=== PATIENT | female | born 1975 | race Caucasian/White ===

== ENCOUNTER 2021-05-03 10:40 | Outpatient (CLI) | payer BC, SELFPAY ==
--- NOTE | 2021-05-03 12:49 | PFTCOMP_ITS ---
COMPLETE PULMONARY FUNCTION TEST INTERPRETATION Brief HPI: Patient is a 45 year old female, currently under the care of myself, who presents to [facility] for complete pulmonary function tests secondary to diagnosis of myositis. Respiratory therapist reports good effort and reproducible results. Interpretation: Forced expiration spirometry shows no large airways obstructive ventilatory defect with an FEV1 of 95% predicted. There is no significant bronchodilator response by strict ATS criteria. Spirograms are of good quality and plateau normally. The respiratory flow volume loop shows a normal pattern. Lung volumes by body plethysmography show a normal total lung capacity at 4.48 L, 90% predicted. All other lung volumes are within normal limits. Diffusion capacity by carbon monoxide is normal at 112% predicted. The airway resistance is slightly elevated. No previous pulmonary function tests were available for review. Impression: These pulmonary function tests are grossly within normal limits.
== END 2021-05-03 23:59 | disposition home or self-care (01) ==
LOC: PSN 10:42
PROVIDERS: Referring Provider Internal Medicine Critical Care Medicine; Visit Provider Internal Medicine Critical Care Medicine
DX: M60.9 Myositis, unspecified (principal)
CPT/HCPCS: 94060; 94726; 94729

== ENCOUNTER 2021-05-05 07:38 | Outpatient (CLI) | payer BC, SELFPAY ==
--- NOTE | 2021-05-05 07:41 | ECHOD_ITS ---
Reason For Study: PHTN Procedure This was a 2D Doppler, Color Flow transthoracic echocardiogram. Exam performed in department. Left Ventricle Normal LV size. The estimated ejection fraction is 55 %. No evidence for diastolic dysfunction. No regional wall motion abnormalities noted. Right Ventricle Normal RV size. Normal systolic function. Atria Normal left atrium. Normal right atrium. No doppler evidence for ASD. Mitral Valve There is no mitral valve stenosis. Trivial mitral valve insufficiency. Tricuspid Valve There is no tricuspid stenosis. Trivial tricuspid valve insufficiency. Unable to estimate RV systolic pressure due to insufficient tricuspid regurgitant envelope. Aortic Valve There is no aortic stenosis. No aortic valve insufficiency. Pulmonic Valve There is no pulmonic valvular stenosis. Trivial pulmonic valve insufficiency. Great Vessels Normal aortic root. Pericardium/Pleural No pericardial effusion. MMode/2D Measurements & Calculations LVIDd: 4.4 cm IVSd: 0.95 cm Ao root diam: 2.9 cm LVIDs: 2.8 cm LVPWd: 0.85 cm RVDd: 3.1 cm FS: 34.9 % LAV(MOD-bp): 34.6 ml LVAd ap4: 25.1 cm2 SV(MOD-sp4): 45.1 ml LAV(MOD-bp) Indexed: 19.8 ml/m2 LVLd ap4: 7.5 cm LAV(MOD-sp2): 40.6 ml EDV(MOD-sp4): 71.2 ml LAV(MOD-sp4): 28.6 ml EDV(sp4-el): 71.3 ml LVAs ap4: 13.6 cm2 LVLs ap4: 6.1 cm ESV(MOD-sp4): 26.1 ml ESV(sp4-el): 25.7 ml EF(MOD-sp4): 63.3 % EF(sp4-el): 64.0 % SV(sp4-el): 45.6 ml LA A4 area: 12.8 cm2 LA dimension(2D): 3.0 cm RA A4 area: 11.2 cm2 Doppler Measurements & Calculations MV E max naun: 85.4 cm/sec Lat Peak E' Naun: 14.7 cm/sec Med Peak E' Naun: 10.8 cm/sec MV A max naun: 54.7 cm/sec E/E' lat: 5.8 E/E' med: 7.9 MV E/A: 1.6 Ao V2 max: 115.9 cm/sec LV V1 max: 81.5 cm/sec PA V2 max: 80.0 cm/sec Ao max P.4 mmHg LV V1 max P.7 mmHg Ao V2 mean: 86.5 cm/sec Ao mean P.2 mmHg Ao V2 VTI: 26.1 cm TR max naun: 222.3 cm/sec TR max P.8 mmHg ECHO/Echo Complete Interpretation Summary The estimated ejection fraction is 55 %. No evidence for diastolic dysfunction. Trivial mitral valve insufficiency. Ordering Physician: Adi Motta Referring Physician: Adi Motta Performed By: Jessica Martin, MANAV, RVT
== END 2021-05-05 23:59 | disposition home or self-care (01) ==
LOC: CVS 07:39
PROVIDERS: Referring Provider Internal Medicine Critical Care Medicine; Visit Provider Internal Medicine Critical Care Medicine
DX: M60.9 Myositis, unspecified (principal); I34.0 Nonrheumatic mitral (valve) insufficiency
CPT/HCPCS: 93306

== ENCOUNTER → 2022-09-24 | Outpatient (CLI) | payer OTHER, SELFPAY ==
--- NOTE | 2022-09-25 08:48 | PFT ---
INTRODUCTION: The patient is a 46-year-old female who presents for pulmonary function studies secondary to a diagnosis of myositis. Respiratory therapy reported good patient effort. Bronchodilators were used during testing. INTERPRETATION: Forced expiration spirometry demonstrates no evidence of a large airways obstructive ventilatory defect. There was no significant response to spirograms are of good quality and plateau normally. The respiratory flow-volume loop is normal. Body plethysmography was performed and revealed a decreased TLC to 4.23 L, 82% of predicted, indicative of a mild restrictive ventilatory impairment. The remainder of the lung volumes are symmetrically reduced. Diffusion capacity by single breath CO is within normal limits. IMPRESSION: Isolated mild restrictive ventilatory impairment with preserved diffusion capacity.
== END | disposition home or self-care (01) ==
PROVIDERS: Referring Provider Internal Medicine Critical Care Medicine; Visit Provider Internal Medicine Critical Care Medicine
DX: M60.9 Myositis, unspecified (principal)
CPT/HCPCS: 94060; 94726; 94729

== ENCOUNTER → 2023-12-26 | Outpatient (CLI) | payer BC, OTHER, SELFPAY | END | disposition home or self-care (01) | LOC: PSN 08:10 | PROVIDERS: Referring Provider Internal Medicine Critical Care Medicine; Visit Provider Internal Medicine Critical Care Medicine | DX: M60.9 Myositis, unspecified (principal) | CPT/HCPCS: 94060; 94726; 94729 ==